=== PATIENT | female | born 1960 | race Caucasian/White ===

== ENCOUNTER → 2017-01-24 | Outpatient (CLI) | payer MEDICARE ==
[~2017-01-24] MED LIST: INCRUSE ELLI62.5 MCG INH; PREDNISONE 20 M20 MG PO; SYMBICORT 16010.2 GM INH; VENTOLIN HFA 66.7 GM INH; VISTARIL25 MG PO; ZANAFLEX4 M1 PO; ZANTAC300 MG PO
== END ==
LOC: CT 10:00
DX: F17.210 Nicotine dependence, cigarettes, uncomplicated (principal); R91.8 Other nonspecific abnormal finding of lung field
CPT/HCPCS: G0297